=== PATIENT | female | born 1970 | race Native Hawaiian/Other Pacific Islander ===

== ENCOUNTER 2017-03-19 16:30 | Emergency (ER) | payer OTHER ==
[~2017-03-19] VITALS: Ht 165.1 cm; Wt 49.4 kg
[2017-03-19 16:28] VITALS: TEMP 97.5
[~2017-03-19 16:30] MED LIST: CLON0.5T36 PO; CYAN100010 IM; CYAN10009 IM; D32000 UNIT OR; FLINTSTONE OR; HYDR10TA47 PO; METO50TA27 PO; MUCINEX600 MG OR; PANT40TA PO; ZANTAC300 MG PO
[2017-03-19 16:55] LABS: PLATELET COUNT 265 K/uL (152-353)
[2017-03-19 17:14] LABS: PARTIAL THROMBOPLASTIN TIME 23.6 SECONDS (24.5-33.6)
[2017-03-19 17:17] LABS: SODIUM 129 mmol/L (136-145)
[2017-03-19 18:50] VITALS: BP 128/89
== END 2017-03-19 18:56 | disposition home or self-care (01) ==
LOC: ED 16:30
PROVIDERS: Specialist
DX: R07.89 Other chest pain (principal); R10.9 Unspecified abdominal pain; R06.02 Shortness of breath
CPT/HCPCS: 36415; 80053; 80307; 82550; 83880; 84484; 85027; 85379; 85610; 85730; 93005; 99284; G0479

== ENCOUNTER 2018-09-29 18:16 | Emergency (ER) | payer OTHER ==
[~2018-09-29] VITALS: Ht 165.1 cm; Wt 68.0 kg
[2018-09-29] MEDS ORDERED: SEROQUEL300 MG PO (18:51)
[2018-09-29] MEDS ORDERED: AMLODIPINE BESYLATE PO (18:52)
[2018-09-29] MEDS ORDERED: CLON1TAB18 PO (18:52)
[2018-09-29] MEDS ORDERED: SEROQUEL50 MG PO (18:52)
[2018-09-29] MEDS ORDERED: VIIBRYD10 MG PO (18:52)
[2018-09-29] MEDS ORDERED: METOPROLOL25 M1 PO (18:53)
[2018-09-29] MEDS ORDERED: NITR0.4S2 SL (18:54)
[2018-09-29] MEDS ORDERED: ASPIR-8181 MG PO (18:54)
[2018-09-29] MEDS ORDERED: ZANTAC300 MG PO (18:54)
[2018-09-29 19:25] LABS: PLATELET COUNT 234 K/uL (152-353)
[2018-09-29 19:36] LABS: POTASSIUM 3.7 mmol/L (3.6-5.2)
[2018-10-01 23:38] VITALS: BP 143/93; TEMP 98
== END 2018-10-02 00:15 | disposition other institution (70) ==
LOC: ED 18:16
PROVIDERS: Family Medicine
DX: F32.2 Major depressive disorder, single episode, severe without psychotic features (principal); R45.851 Suicidal ideations
CPT/HCPCS: 36415; 80053; 80307; 81000; 85027; 93005; 96372; 99285; J2060